=== PATIENT | female | born 1995 | race African-American/Black ===

== ENCOUNTER 2017-07-27 07:52 | Emergency (ER) | payer OTHER ==
[~2017-07-27] VITALS: Ht 157.5 cm; Wt 73.0 kg
[~2017-07-27 07:52] MED LIST: ALLE24TA PO; AUGM875T PO; PRED20 PO
[2017-07-27 07:54] VITALS: BP 118/64; PULSE 75; RESP 14; TEMP 98.6; O2SAT 100
--- NOTE | 2017-07-27 08:00 | PD ---
HPI Chief Complaint: Skin Problem Time Seen by Provider: 07:58 Travel History International Travel<30 days: No Contact w/Intl Traveler<30days: No Traveled to known affect area: No History of Present Illness HPI 21-year-old -[place] female presents emergency department with ongoing problems with her right great toe nail. She states this is been going on for months. She states it grows out thickened and brittle and breaks off and is now painful over the last 2 weeks. She is concerned about infection. She denies fever, or drainage. Pain is currently 8 out of 10. Patient has no other complaints. She has no known drug allergies. Patient is allergic to seafood. PFSH Past Medical History Diminished Hearing: No Immunizations Current: Yes ?: Not Social History Alcohol Use: Yes (OCC) Tobacco Use: Yes (OCC) Substance Use: No Allergies-Medications (Allergen,Severity, Reaction): Coded Allergies: No Known Allergies (Unverified Allergy, Unknown, 07/27/17) Uncoded Allergies: SEAFOOD (Adverse Reaction, Severe, 07/27/17) BREAKOUT; SWELLING Reported Meds & Prescriptions Reported Meds & Active Scripts Active Diflucan (Fluconazole) 150 Mg Tab 150 Mg PO WEEKLY Review of Systems Except as stated in HPI: all other systems reviewed are Neg General / Constitutional: No: Fever Eyes: No: Visual changes HENT: No: Headaches Cardiovascular: No: Chest Pain or Discomfort Respiratory: No: Shortness of Breath Gastrointestinal: No: Abdominal Pain Genitourinary: No: Dysuria Musculoskeletal: No: Pain Skin: Positive Lesions, No Rash Neurologic: No: Weakness Psychiatric: No: Depression Endocrine: No: Polydipsia Hematologic/Lymphatic: No: Easy Bruising Physical Exam Narrative GENERAL: Patient is in no acute distress. SKIN: Warm and dry. Patient has obvious onychomycosis to the right great toenail with the nail being broken off uncovering partially the nailbed. There is no sign of bacterial infection, ingrown toenail, or paronychia. Irritation is localized without significant erythema or streaking. HEAD: Atraumatic. Normocephalic. EYES: Pupils equal and round. No scleral icterus. No injection or drainage. ENT: No nasal bleeding or discharge. Mucous membranes pink and moist. Pharynx is clear. Airways patent. NECK: Trachea midline. No JVD. CARDIOVASCULAR: Regular rate and rhythm. RESPIRATORY: No accessory muscle use. Clear to auscultation. Breath sounds equal bilaterally. MUSCULOSKELETAL: Extremities without clubbing, cyanosis, or edema. No obvious deformities. NEUROLOGICAL: Awake and alert. No obvious cranial nerve deficits. Motor grossly within normal limits. Five out of 5 muscle strength in the arms and legs. Normal speech. PSYCHIATRIC: Appropriate mood and affect; insight and judgment normal. Data Data Last Documented VS Vital Signs Date Time Temp Pulse Resp B/P (MAP) Pulse Ox O2 Delivery O2 Flow Rate FiO2 07/27/17 08:05 15 07/27/17 07:54 98.6 75 118/64 (82) 100 MDM Medical Decision Making Medical Screen Exam Complete: Yes Emergency Medical Condition: Yes Differential Diagnosis Right toe pain. Onychomycosis. Cellulitis. Narrative Course Patient is felt to have onychomycosis of the right great toenail. Patient is treated with Diflucan 150 mg weekly for 4 weeks. Patient is referred to Dr. Flores, the postal transportation clerk on-call Diagnosis Primary Impression: Onychomycosis of right great toe Referrals: Anaid Flores DPM call for appointment Patient Instructions: General Instructions, Skin Yeast Infection (ED) Additional Instructions: Patient is felt to have onychomycosis of the right great toenail. Patient is treated with Diflucan 150 mg weekly for 4 weeks. Patient is referred to Dr. Flores, the postal transportation clerk on-call Med/Other Pt SpecificInfo: Prescription(s) given Scripts Fluconazole (Diflucan) 150 Mg Tab 150 MG PO WEEKLY for Infection, #4 TAB 0 Refills Prov: Sariah Wellington MD 07/27/17 Disposition: 01 DISCHARGE HOME Condition: Stable David Amaro Jul 27, 2017 08:00
[2017-07-27] MEDS ORDERED: DIFL150T PO (08:22)
== END 2017-07-27 08:46 | disposition home or self-care (01) ==
LOC: NEPD 07:52
DX: B35.1 Tinea unguium (principal); Z72.0 Tobacco use; Z91.013 Allergy to seafood
CPT/HCPCS: 99283

== ENCOUNTER 2017-09-25 16:55 | Emergency (ER) | payer OTHER ==
[~2017-09-25] VITALS: Ht 157.5 cm; Wt 75.0 kg
[~2017-09-25 16:55] MED LIST changes: -ALLE24TA PO; -AUGM875T PO; +DIFL150T PO; -PRED20 PO
[2017-09-25 17:00] VITALS: BP 129/65; PULSE 81; RESP 18; TEMP 98.9; O2SAT 100
[2017-09-25] MEDS ORDERED: DICL75TA PO (20:05)
--- NOTE | 2017-09-25 20:08 | PD ---
HPI Chief Complaint: Injury Time Seen by Provider: 19:58 Travel History International Travel<30 days: No Contact w/Intl Traveler<30days: No Traveled to known affect area: No History of Present Illness HPI 21-year-old black female presents emergency department with complaints of right knee pain after injury dancing last evening. She states that she was squatted down on the inside of her right knee pop. Since then she has been having difficulty weightbearing, fully extending and fully flexing her knee. She denies any numbness or tingling. Pain is moderate. Worse with movement. Some relief with elevation. PFSH Past Medical History Anemia: Yes High Cholesterol: Yes Diminished Hearing: No Hypertension: Yes Immunizations Current: Yes ?: Not LMP: 09/25/17 Past Surgical History Surgical History: No Previous Surgery Social History Alcohol Use: Yes (OCC) Tobacco Use: No Substance Use: No Allergies-Medications (Allergen,Severity, Reaction): Uncoded Allergies: SEAFOOD (Adverse Reaction, Severe, 07/27/17) BREAKOUT; SWELLING Reported Meds & Prescriptions Reported Meds & Active Scripts Active Diclofenac Sodium DR (Diclofenac Sodium) 75 Mg Tabdr 75 Mg PO BID Review of Systems Except as stated in HPI: all other systems reviewed are Neg Physical Exam Narrative GENERAL: Well-developed, well-nourished in no apparent distress. Nontoxic appearing. HEAD: Normocephalic, atraumatic. EYES: Pupils equal round and reactive. Extraocular motions intact. No scleral icterus. No injection or drainage. ENT: Nose clear. Throat without erythema, tonsillar hypertrophy or exudate. Uvula midline. Airway patent. NECK: Trachea midline. Supple, nontender, moves head freely. No central bony tenderness or spasm. CARDIOVASCULAR: Regular rate and rhythm without murmurs, gallops, or rubs. RESPIRATORY: Clear to auscultation. Breath sounds equal bilaterally. No wheezes , rales, or rhonchi. GASTROINTESTINAL: Abdomen soft, non-tender, nondistended. No hepato-splenomegaly , or palpable masses. No guarding. EXTREMITIES: No clubbing, cyanosis, or edema. Examination the right lower extremity reveals tenderness to the medial collateral ligament. She has tenderness with stressing of the ligament. There is no instability. Lateral collateral ligament instability. No anterior posterior drawer. No joint effusion. No pain in the hip, ankle, foot. She has intact sensation with good distal pulses. She ambulates with an antalgic gait. Left lower extremity as well as upper extremities are unremarkable. BACK: Nontender without deformity. No flank tenderness. NEUROLOGICAL: Awake, alert and oriented x 3 .Cranial nerves grossly intact. Motor and sensory grossly within normal limits. Normal speech. Data Data Last Documented VS Vital Signs Date Time Temp Pulse Resp B/P (MAP) Pulse Ox O2 Delivery O2 Flow Rate FiO2 09/25/17 17:00 98.9 81 18 129/65 (86) 100 Orders Orders Ice/Cold Pack (09/25/17 20:03) Splint Or Brace Apply/Monitor (09/25/17 20:03) Crutches (09/25/17 20:03) Naproxen (Naprosyn) (09/25/17 20:15) Ed Discharge Order (09/25/17 20:03) MDM Medical Decision Making Medical Screen Exam Complete: Yes Emergency Medical Condition: Yes Medical Record Reviewed: Yes Differential Diagnosis MDM: High Differential diagnoses: Fracture, sprain, strain, dislocation, contusion, neurovascular injury Narrative Course This is right medial collateral ligament strain Patient given Naprosyn 500 mg p.o., ice pack, Rene wrap, crutches. Diagnosis Primary Impression: Right knee medial collateral ligament strain Patient Instructions: General Instructions Additional Instructions: Rest. Elevation. Ice packs for the next 3 days. Rene wrap and crutches. No weight-bearing and then progress to weight-bearing as tolerated. Medications as directed Follow-up with an orthopedist or your doctor in one week. Return to the ER if any problems Scripts Diclofenac Sodium DR (Diclofenac Sodium DR) 75 Mg Tabdr 75 MG PO BID, #20 TAB 0 Refills Prov: Ge Colbert MD 09/25/17 Disposition: 01 DISCHARGE HOME Condition: Stable Tone Haas Sep 25, 2017 20:08
[2017-09-25] MEDS ORDERED: NAPROXEN 500 MG TAB PO ONE (20:15)
== END 2017-09-25 20:13 | disposition home or self-care (01) ==
LOC: NEPK 16:55
DX: S83.411A Sprain of medial collateral ligament of right knee, initial encounter (principal); I10 Essential (primary) hypertension; D64.9 Anemia, unspecified; X50.1XXA Overexertion from prolonged static or awkward postures, initial encounter; Y93.41 Activity, dancing
CPT/HCPCS: 99283; E0113